=== PATIENT | male | born 1935 | race Caucasian/White ===

== ENCOUNTER 2018-09-10 13:40 | Inpatient (IN) ==
[2018-09-10 14:33] LABS: Bilirubin,Urine Negative (Negative); Blood,Urine Moderate (Negative); Clarity,Urine Clear (Clear); Color,Urine Yellow (Yellow); Glucose,Urine (UA) 100 mg/dL (Normal); Ketones,Urine Negative (Negative); Leukocyte Esterase,Urine Negative (Negative); Nitrite,Urine Negative (Negative); PH,Urine 6.5 pH Units (5.0-8.0); Protein,Urine 100 mg/dL (Neg-Trace); Specific Gravity,Urine 1.011 (1.010-1.025); Urobilinogen,Urine Normal (Normal)
[2018-09-10 14:35] LABS: Bacteria,Urine None Seen per hpf (None-Few); Hyaline Casts,Urine None Seen per lpf (None-Few); Squamous Epithelial Cell,Urine Moderate per lpf (None-Few); WBC,Urine 0-3 per hpf (0-3)
--- NOTE | 2018-09-10 16:48 | Emergency Department Note ---
Disposition Clinical Impression: Atrial fibrillation with RVR, Weakness, Urinary retention, BRIANNA (acute kidney injury) Disposition: Admitted As Inpatient Condition: Fair General Adult HPI - General Chief complaint: ED Urogenital-Male Stated complaint: UTI Time Seen by Provider: 09/10/18 16:35 - History of Present Illness Pain Scale: 0 - Related Data Home Medications Medication Instructions Recorded Confirmed Benazepril HCl [Lotensin] 20 mg PO DAILY 09/10/18 09/10/18 Cholecalciferol (D-3) [Vitamin D] 2,000 unit PO DAILY 09/10/18 09/10/18 Latanoprost [Xalatan] 1 drop BOTH EYES HS 09/10/18 09/10/18 Metformin HCl [Glucophage Xr] 500 mg PO BID 09/10/18 09/10/18 Pravastatin Sodium [Pravachol] 40 mg PO QPM 09/10/18 09/10/18 Tamsulosin HCl [Flomax] 0.4 mg PO QPM 09/10/18 09/10/18 Warfarin Sodium 5 mg PO SUTUTHSA 09/10/18 09/10/18 Warfarin [Coumadin] 6 mg PO MOWEFR 09/10/18 09/10/18 amLODIPine [Norvasc] 5 mg PO DAILY 09/10/18 09/10/18 raNITIdine HCl [Ranitidine HCl] 150 mg PO QPM 09/10/18 09/10/18 Allergies Allergy/AdvReac Type Severity Reaction Status Date / Time No Known Allergies Allergy Verified 09/10/18 13:44 Course Vital Signs Temperature 98.9 F 09/10/18 13:41 Pulse Rate 108 09/10/18 13:41 Respiratory Rate 16 09/10/18 13:41 Blood Pressure 132/84 09/10/18 13:41 O2 Sat by Pulse Oximetry 92 09/10/18 13:41 Temperature 98.9 F 09/10/18 18:29 Pulse Rate 114 09/10/18 18:32 Respiratory Rate 17 09/10/18 18:32 Blood Pressure 102/70 09/10/18 18:32 O2 Sat by Pulse Oximetry 97 09/10/18 18:32 Oxygen Delivery Oxygen Delivery Room Air Medical Decision Making - Lab Data Result diagrams: 09/10/18 16:17 09/10/18 16:17 Lab Results 09/10/18 09/10/1819 Range/Units 14:21 16:17 16:17 WBC 13.6 H (4.3-11.1) K/mcL RBC 4.47 (4.19-5.50) M/mcL Hgb 12.7 L (12.9-16.9) g/dL Hct 40.5 (37.5-50.1) % MCV 90.6 (83.0-100.0) fL MCH 28.4 (28.0-33.3) pg MCHC 31.4 L (31.6-35.5) g/dL RDW 16.7 H (11.5-14.5) % Plt Count 142 (140-400) K/mcL MPV 9.6 (9.4-12.4) fL Immature Gran % 0.8 (0-4) % Seg Neutrophils % 72.9 % Lymphocytes % 17.2 % Monocytes % 8.6 % Eosinophils % 0.1 % Basophils % 0.4 % Neutrophils # 9.9 H (1.6-8.9) K/mcL Lymphocytes # 2.3 (0.6-4.6) K/mcL Monocytes # 1.2 (0.0-1.3) K/mcL Eosinophils # 0.0 (0.0-0.6) K/mcL Basophils # 0.1 (0.0-0.2) K/mcL PT (9.4-12.1) Seconds INR Sodium 137 (136-145) mEq/L Potassium 4.7 (3.5-5.1) mEq/L Chloride 104 (98-107) mEq/L Carbon Dioxide 26 (23-29) mEq/L BUN 29 H (8-23) mg/dL Creatinine 1.97 H (0.70-1.30) mg/dL Est GFR ( Amer) 39 L (> 60) Est GFR (Non-Af Amer) 33 L (> 60) BUN/Creatinine Ratio 15 (6-26) Glucose 117 H (70-105) mg/dL Calculated Osmolality 291 (280-300) Calcium 9.3 (8.6-10.3) mg/dL Phosphorus (2.7-4.5) mg/dL Magnesium (1.6-2.6) mg/dL Total Bilirubin 1.9 H (0.3-1.0) mg/dL Direct Bilirubin 0.4 H (0.0-0.2) mg/dL Indirect Bilirubin 1.5 H (0.0-1.2) mg/dL AST 13 (13-39) Units/L ALT 13 (7-52) Units/L Alkaline Phosphatase 72 (34-104) Units/L Troponin I (< 0.04) ng/mL B-Natriuretic Peptide (Less than 100) pg/mL Serum Total Protein 7.0 (6.4-8.9) g/dL Albumin 3.9 (3.5-5.7) g/dL Globulin 3.1 (2.4-3.5) g/dL Albumin/Globulin Ratio 1.3 (1.1-2.2) Lipase 12 (11-82) Units/L Urine Color Yellow (Yellow) Urine Clarity Clear (Clear) Urine pH 6.5 (5.0-8.0) pH Units Ur Specific [place] 1.011 (1.010-1.025) Urine Protein 100 H (Neg-Trace) mg/dL Urine Glucose (UA) 100 H (Normal) mg/dL Urine Ketones Negative (Negative) mg/dL Urine Blood Moderate H (Negative) Urine Nitrite Negative (Negative) Urine Bilirubin Negative (Negative) Urine Urobilinogen Normal (Normal) mg/dL Ur Leukocyte Esterase Negative (Negative) Urine Microscopic RBC 5-15 H (0-3) per hpf Urine Microscopic WBC 0-3 (0-3) per hpf Ur Squamous Epith Cells Moderate H (None-Few) per lpf Urine Bacteria None Seen (None-Few) per hpf Hyaline Casts None Seen (None-Few) per lpf Ur Culture Indicated? NO (NO) 09/10/18 09/10/18 09/10/18 Range/Units 16:17 17:09 17:09 WBC (4.3-11.1) K/mcL RBC (4.19-5.50) M/mcL Hgb (12.9-16.9) g/dL Hct (37.5-50.1) % MCV (83.0-100.0) fL MCH (28.0-33.3) pg MCHC (31.6-35.5) g/dL RDW (11.5-14.5) % Plt Count (140-400) K/mcL MPV (9.4-12.4) fL Immature Gran % (0-4) % Seg Neutrophils % % Lymphocytes % % Monocytes % % Eosinophils % % Basophils % % Neutrophils # (1.6-8.9) K/mcL Lymphocytes # (0.6-4.6) K/mcL Monocytes # (0.0-1.3) K/mcL Eosinophils # (0.0-0.6) K/mcL Basophils # (0.0-0.2) K/mcL PT 21.5 H (9.4-12.1) Seconds INR 1.9 Sodium (136-145) mEq/L Potassium (3.5-5.1) mEq/L Chloride (98-107) mEq/L Carbon Dioxide (23-29) mEq/L BUN (8-23) mg/dL Creatinine (0.70-1.30) mg/dL Est GFR ( Amer) (> 60) Est GFR (Non-Af Amer) (> 60) BUN/Creatinine Ratio (6-26) Glucose (70-105) mg/dL Calculated Osmolality (280-300) Calcium (8.6-10.3) mg/dL Phosphorus 2.3 L (2.7-4.5) mg/dL Magnesium 1.8 (1.6-2.6) mg/dL Total Bilirubin (0.3-1.0) mg/dL Direct Bilirubin (0.0-0.2) mg/dL Indirect Bilirubin (0.0-1.2) mg/dL AST (13-39) Units/L ALT (7-52) Units/L Alkaline Phosphatase (34-104) Units/L Troponin I 0.07 H* (< 0.04) ng/mL B-Natriuretic Peptide 348 H (Less than 100) pg/mL Serum Total Protein (6.4-8.9) g/dL Albumin (3.5-5.7) g/dL Globulin (2.4-3.5) g/dL Albumin/Globulin Ratio (1.1-2.2) Lipase (11-82) Units/L Urine Color (Yellow) Urine Clarity (Clear) Urine pH (5.0-8.0) pH Units Ur Specific [place] (1.010-1.025) Urine Protein (Neg-Trace) mg/dL Urine Glucose (UA) (Normal) mg/dL Urine Ketones (Negative) mg/dL Urine Blood (Negative) Urine Nitrite (Negative) Urine Bilirubin (Negative) Urine Urobilinogen (Normal) mg/dL Ur Leukocyte Esterase (Negative) Urine Microscopic RBC (0-3) per hpf Urine Microscopic WBC (0-3) per hpf Ur Squamous Epith Cells (None-Few) per lpf Urine Bacteria (None-Few) per hpf Hyaline Casts (None-Few) per lpf Ur Culture Indicated? (NO) Attestation Statement - Attestation Attestation: I reviewed the residents documentation and agree with the residents assessment and plan of care. I have personally had face to face time with the patient. (Brief History, Brief Exam, and MDM) I personally supervised and was present for the loaiza/critical portions of the following procedures completed by the resident: (add procedures performed here). [id number] time provided Patient appears in no acute distress on exam. Triage note and vitals reviewed by me. Case discussed by me with the resident physician.
[2018-09-10 16:52] LABS: Basophils # 0.1 K/mcL (0.0-0.2); Basophils % 0.4 %; Eosinophils % 0.1 %; Hematocrit 40.5 % (37.5-50.1); Hemoglobin 12.7 g/dL (12.9-16.9); Immature Granulocytes % 0.8 % (0-4); Lymphocytes # 2.3 K/mcL (0.6-4.6); Lymphocytes % 17.2 %; Mean Corpuscular HGB Conc 31.4 g/dL (31.6-35.5); Mean Corpuscular Hemoglobin 28.4 pg (28.0-33.3); Mean Corpuscular Volume 90.6 fL (83.0-100.0); Mean Platelet Volume 9.6 fL (9.4-12.4); Monocytes # 1.2 K/mcL (0.0-1.3); Monocytes % 8.6 %; Neutrophils # 9.9 K/mcL (1.6-8.9); Platelet Count 142 K/mcL (140-400); Red Blood Count 4.47 M/mcL (4.19-5.50); Red Cell Distribution Width 16.7 % (11.5-14.5); Segmented Neutrophils % 72.9 %
--- NOTE | 2018-09-10 16:53 | Emergency Department Note ---
Disposition Clinical Impression: Atrial fibrillation with RVR, Weakness, Urinary retention, BRIANNA (acute kidney injury) Disposition: Admitted As Inpatient Condition: Fair Time of Disposition: 17:43 General Adult HPI - General Chief complaint: ED Urogenital-Male Stated complaint: UTI Time Seen by Provider: 09/10/18 16:35 Source: patient Mode of arrival: ambulatory Limitations: no limitations Nursing Notes Reviewed: Yes Vital Signs Reviewed: Yes - History of Present Illness HPI Narrative: 83-year-old male with history of hypertension, diabetes, BPH with recent hospitalization a [place] a couple months ago for Escherichia coli bacteremia, sepsis and C. difficile presents for evaluation of generalized weakness and concerns for UTI. Patient's history provided via some family at bedside. States the patient does live alone at home. States that he has been more generally weak over the past 24 hours. Patient's also complaining of some urinary symptoms such as dribbling. Patient feels that he is not drinking his bladder but is not entirely sure. Patient denies any chest pain or shortness of breath but noted some chills. No diaphoresis. No abdominal pain or nausea vomiting. Patient denies any recent trauma or falls. Patient is on Coumadin for CAD as well as prior history of blood clots. Patient denies any current diarrhea and completed his course of oral vancomycin as well as completed a course of Bactrim for Escherichia coli. Pain Scale: 0 - Related Data Home Medications Medication Instructions Recorded Confirmed Latanoprost [Xalatan] 1 drop BOTH EYES HS 09/10/18 09/10/18 Warfarin Sodium 5 mg PO SUTUTHSA 09/10/18 09/10/18 Warfarin [Coumadin] 6 mg PO MOWEFR 09/10/18 09/10/18 Allergies Allergy/AdvReac Type Severity Reaction Status Date / Time No Known Allergies Allergy Verified 09/10/18 13:44 All systems ED: reviewed and negative except as stated. Constitutional: Reports: chills. Denies: fever Cardiovascular: Denies: chest pain Respiratory: Denies: cough, dyspnea Gastrointestinal: Denies: abdominal pain, nausea, vomiting Past Medical History - Past Medical History Source: patient Physical Exam - General Limitations: no limitations General appearance: alert, in no apparent distress - Head Head exam: atraumatic, normocephalic, normal inspection - Eye Eye exam: Present: normal appearance, PERRL, EOMI - ENT ENT exam: normal exam - Neck Neck exam: Present: normal inspection - Chest Chest inspection: Present: normal inspection - Respiratory Respiratory exam: Present: normal lung sounds bilaterally. Absent: respiratory distress - Cardiovascular Cardiovascular exam: Present: regular rate, normal rhythm. Absent: normal heart sounds - Abdominal Exam Abdominal exam: Present: soft, Non-Tender - Extremities Exam Extremities exam: Present: normal inspection. Absent: pedal edema - Back Exam Back exam: Present: normal inspection - Neurological Exam Neurological exam: Present: alert, oriented X3, CN II-XII intact - Expanded Neurological Exam Patient oriented to: Present: person Cranial nerves: EOM function (II, III, IV, ): Normal, facial sensation (V): Normal, gag reflex (IX): Normal, spinal accessory function (XI): Normal, tongue deviation (XII): Normal Motor strength - LUE: 5/5 Motor strength - RUE: 5/5 Motor strength - LLE: 5/5 Motor strength - RLE: 5/5 - Skin Skin exam: Present: warm, dry, intact, normal color Course Course Narrative: Patient presents for concerns of generalized weakness. Patient will get basic cardiopulmonary screening evaluation including a troponin chest x-ray. Patient also get jackson catheter. Patient's urine obtained from just not show any signs of infection. - Reevaluation(s) Reevaluation #1: Patient seen and examined. Patient's ED course discussed. Concerns of new onset A. fib. Time: 17:36 Vital Signs Temperature 98.9 F 09/10/18 13:41 Pulse Rate 108 09/10/18 13:41 Respiratory Rate 16 09/10/18 13:41 Blood Pressure 132/84 09/10/18 13:41 O2 Sat by Pulse Oximetry 92 09/10/18 13:41 Temperature 98.9 F 09/10/18 18:29 Pulse Rate 114 09/10/18 18:32 Respiratory Rate 17 09/10/18 18:32 Blood Pressure 102/70 09/10/18 18:32 O2 Sat by Pulse Oximetry 97 09/10/18 18:32 Oxygen Delivery Oxygen Delivery Room Air Medical Decision Making - MDM Narrative Medical decision making narrative: Patient presented for concerns of a UTI. Patient however was complaining of generalized weakness. Patient did have recent hospitalization with sepsis bacteremia as well as C. difficile. Patient denies any abdominal pain is not symptomatic with any diarrhea. Patient finished course of vancomycin as well as Septra for his Escherichia coli. During the patient's ED evaluations noted to be in A. fib RVR with no prior history. Patient is on Coumadin concerns for PE. Patient's initial troponin was negative. Patient required rate control medications. Patient chemistries show renal insufficiency without any prior comparisons. Patient did have a Jackson placed with urinary retention noted. AK I possibly related the patient's post obstructive uropathy. Patient's heart rate and vitals improved during the ED course. Patient will be admitted to hospital service for continued evaluation and monitoring. - Lab Data Lab results reviewed: Yes I reviewed the patient's lab results. Result diagrams: 09/10/18 16:17 09/10/18 16:17 Lab Results 09/10/18 09/10/18 09/10/18 Range/Units 14:21 16:17 16:17 WBC 13.6 H (4.3-11.1) K/mcL RBC 4.47 (4.19-5.50) M/mcL Hgb 12.7 L (12.9-16.9) g/dL Hct 40.5 (37.5-50.1) % MCV 90.6 (83.0-100.0) fL MCH 28.4 (28.0-33.3) pg MCHC 31.4 L (31.6-35.5) g/dL RDW 16.7 H (11.5-14.5) % Plt Count 142 (140-400) K/mcL MPV 9.6 (9.4-12.4) fL Immature Gran % 0.8 (0-4) % Seg Neutrophils % 72.9 % Lymphocytes % 17.2 % Monocytes % 8.6 % Eosinophils % 0.1 % Basophils % 0.4 % Neutrophils # 9.9 H (1.6-8.9) K/mcL Lymphocytes # 2.3 (0.6-4.6) K/mcL Monocytes # 1.2 (0.0-1.3) K/mcL Eosinophils # 0.0 (0.0-0.6) K/mcL Basophils # 0.1 (0.0-0.2) K/mcL PT (9.4-12.1) Seconds INR Sodium 137 (136-145) mEq/L Potassium 4.7 (3.5-5.1) mEq/L Chloride 104 (98-107) mEq/L Carbon Dioxide 26 (23-29) mEq/L BUN 29 H (8-23) mg/dL Creatinine 1.97 H (0.70-1.30) mg/dL Est GFR ( Amer) 39 L (> 60) Est GFR (Non-Af Amer) 33 L (> 60) BUN/Creatinine Ratio 15 (6-26) Glucose 117 H (70-105) mg/dL Calculated Osmolality 291 (280-300) Calcium 9.3 (8.6-10.3) mg/dL Phosphorus (2.7-4.5) mg/dL Magnesium (1.6-2.6) mg/dL Total Bilirubin 1.9 H (0.3-1.0) mg/dL Direct Bilirubin 0.4 H (0.0-0.2) mg/dL Indirect Bilirubin 1.5 H (0.0-1.2) mg/dL AST 13 (13-39) Units/L ALT 13 (7-52) Units/L Alkaline Phosphatase 72 (34-104) Units/L Troponin I (< 0.04) ng/mL B-Natriuretic Peptide (Less than 100) pg/mL Serum Total Protein 7.0 (6.4-8.9) g/dL Albumin 3.9 (3.5-5.7) g/dL Globulin 3.1 (2.4-3.5) g/dL Albumin/Globulin Ratio 1.3 (1.1-2.2) Lipase 12 (11-82) Units/L Urine Color Yellow (Yellow) Urine Clarity Clear (Clear) Urine pH 6.5 (5.0-8.0) pH Units Ur Specific [place] 1.011 (1.010-1.025) Urine Protein 100 H (Neg-Trace) mg/dL Urine Glucose (UA) 100 H (Normal) mg/dL Urine Ketones Negative (Negative) mg/dL Urine Blood Moderate H (Negative) Urine Nitrite Negative (Negative) Urine Bilirubin Negative (Negative) Urine Urobilinogen Normal (Normal) mg/dL Ur Leukocyte Esterase Negative (Negative) Urine Microscopic RBC 5-15 H (0-3) per hpf Urine Microscopic WBC 0-3 (0-3) per hpf Ur Squamous Epith Cells Moderate H (None-Few) per lpf Urine Bacteria None Seen (None-Few) per hpf Hyaline Casts None Seen (None-Few) per lpf Ur Culture Indicated? NO (NO) 09/10/18 09/10/18 09/10/18 Range/Units 16:17 17:09 17:09 WBC (4.3-11.1) K/mcL RBC (4.19-5.50) M/mcL Hgb (12.9-16.9) g/dL Hct (37.5-50.1) % MCV (83.0-100.0) fL MCH (28.0-33.3) pg MCHC (31.6-35.5) g/dL RDW (11.5-14.5) % Plt Count (140-400) K/mcL MPV (9.4-12.4) fL Immature Gran % (0-4) % Seg Neutrophils % % Lymphocytes % % Monocytes % % Eosinophils % % Basophils % % Neutrophils # (1.6-8.9) K/mcL Lymphocytes # (0.6-4.6) K/mcL Monocytes # (0.0-1.3) K/mcL Eosinophils # (0.0-0.6) K/mcL Basophils # (0.0-0.2) K/mcL PT 21.5 H (9.4-12.1) Seconds INR 1.9 Sodium (136-145) mEq/L Potassium (3.5-5.1) mEq/L Chloride (98-107) mEq/L Carbon Dioxide (23-29) mEq/L BUN (8-23) mg/dL Creatinine (0.70-1.30) mg/dL Est GFR ( Amer) (> 60) Est GFR (Non-Af Amer) (> 60) BUN/Creatinine Ratio (6-26) Glucose (70-105) mg/dL Calculated Osmolality (280-300) Calcium (8.6-10.3) mg/dL Phosphorus 2.3 L (2.7-4.5) mg/dL Magnesium 1.8 (1.6-2.6) mg/dL Total Bilirubin (0.3-1.0) mg/dL Direct Bilirubin (0.0-0.2) mg/dL Indirect Bilirubin (0.0-1.2) mg/dL AST (13-39) Units/L ALT (7-52) Units/L Alkaline Phosphatase (34-104) Units/L Troponin I 0.07 H* (< 0.04) ng/mL B-Natriuretic Peptide 348 H (Less than 100) pg/mL Serum Total Protein (6.4-8.9) g/dL Albumin (3.5-5.7) g/dL Globulin (2.4-3.5) g/dL Albumin/Globulin Ratio (1.1-2.2) Lipase (11-82) Units/L Urine Color (Yellow) Urine Clarity (Clear) Urine pH (5.0-8.0) pH Units Ur Specific [place] (1.010-1.025) Urine Protein (Neg-Trace) mg/dL Urine Glucose (UA) (Normal) mg/dL Urine Ketones (Negative) mg/dL Urine Blood (Negative) Urine Nitrite (Negative) Urine Bilirubin (Negative) Urine Urobilinogen (Normal) mg/dL Ur Leukocyte Esterase (Negative) Urine Microscopic RBC (0-3) per hpf Urine Microscopic WBC (0-3) per hpf Ur Squamous Epith Cells (None-Few) per lpf Urine Bacteria (None-Few) per hpf Hyaline Casts (None-Few) per lpf Ur Culture Indicated? (NO) - Radiology Data Radiology results reviewed: Yes I reviewed the patient's radiology results. Chest X-Ray 09/10/18 16:48 IMPRESSION: No acute cardiopulmonary disease. Cardiomegaly. D/ / 09/10/2018 17:11:22 Salena Cardenas MD / [facility] Interpreting Provider: Salena Cardenas MD - EKG Data EKG #1 EKG attestation: Yes I reviewed and interpreted this EKG. Rate: tachycardia Rhythm: A.Fib [place]/QRS: left axis deviation, LAHB/LAFB When compared to previous EKG there are: changes noted Interpretation: nonspecific ST-T wave changes S.B.A.R. - S.B.A.R. Situation: Demographics Background: Presenting Complaint Assessment: Vital Signs, Course and respsone to treatment, Patient/Family Expectation Recommendation: Barrier(s) to disposition, Recommendation based on pending studies, treatments, or consults S.B.A.R. Report Given to: Hospitalist S.B.A.R. Repor Time: 17:43
[2018-09-10 17:04] LABS: Albumin 3.9 g/dL (3.5-5.7); Albumin/Globulin Ratio 1.3 (1.1-2.2); Bilirubin,Direct 0.4 mg/dL (0.0-0.2); Bilirubin,Indirect 1.5 mg/dL (0.0-1.2); Bilirubin,Total 1.9 mg/dL (0.3-1.0); Calcium 9.3 mg/dL (8.6-10.3); Globulin 3.1 g/dL (2.4-3.5); Potassium 4.7 mEq/L (3.5-5.1)
[2018-09-10 17:08] LABS: INR 1.9; Prothrombin Time 21.5 Seconds (9.4-12.1)
[2018-09-10] MEDS ORDERED: 0.9 % Sodium Chloride 500 ML IVC ONE (17:42)
[2018-09-10] MEDS ORDERED: Acetaminophen 325 MG TABLET PO PRN (17:51)
[2018-09-10] MEDS ORDERED: Naloxone 0.4 MG/ML INJ IVP PRN (17:51)
[2018-09-10] MEDS ORDERED: Ondansetron 4 MG/2 ML VIAL IVP PRN (17:51)
[2018-09-10] MEDS ORDERED: Mag Hydrox/Al Hydrox/Simeth 30 ML UDC PO PRN (17:51)
[2018-09-10] MEDS ORDERED: MOM Conc 10 ML UD.LIQ PO PRN (17:51)
[2018-09-10] MEDS ORDERED: traMADol 50 MG TABLET PO PRN (17:51)
[2018-09-10] MEDS ORDERED: *HR* Promethazine 25 MG/ML VIAL IVP PRN (17:51)
[2018-09-10] MEDS ORDERED: *HR* Dextrose 50 % in Water (Syg) 50 ML SYRINGE IVP PRN (17:57)
[2018-09-10] MEDS ORDERED: Dextrose Gel 15 GM/37.5 ML TUBE PO PRN ×2 (17:57)
[2018-09-10] MEDS ORDERED: D5% in Water 1,000 ML IVC PRN (17:57)
--- NOTE | 2018-09-10 17:59 | Internal Med History&Physical ---
Date of Encounter: 09/10/18 Time of Encounter: 17:56 Internal Medicine - H&P: HPI Admitted From: Home Plans for Post Hospital Care: Home History of present illness: 83-year-old male with history of hypertension, diabetes, BPH with recent hospitalization a [place] a couple months ago for Escherichia coli bacteremia, sepsis and C. difficile presents for evaluation of generalized weakness and concerns for UTI. Patient's history provided via some family at bedside. States the patient does live alone at home. States that he has been more ge nerally weak over the past 24 hours. Patient's also complaining of some urinary symptoms such as dribbling. Patient feels that he is not drinking his bladder but is not entirely sure. Patient denies any chest pain or shortness of breath but noted some chills. No diaphoresis. No abdominal pain or nausea vomiting. Patient denies any recent trauma or falls. Patient is on Coumadin for CAD as we ll as prior history of blood clots. Patient denies any current diarrhea and completed his course of oral vancomycin as well as completed a course of Bactrim for Escherichia coli. In the ED, pt vitals were notable for tachycardia with HR about 120, tele showed afib. labs showed elevated wbc, Cr, BUN, and bili. UA does not show wbc or pyuria. CXR showed cardiomegaly without edema. He is admitted for further evaluation. Code status discussed with pt and family, they wish to be full code. Internal Medicine - H&P: Meds Allergy/AdvReac Type Severity Reaction Status Date / Time No Known Allergies Allergy Verified 09/10/18 13:44 All Systems PM: A 10-system review of systems was performed and is negative for pertinent f indings except as documented above in the HPI. Review of systems: REVIEW OF SYSTEMS: CONSTITUTIONAL: No weight loss, fever, chills, weakness or fatigue. HEENT: Eyes: No visual loss, blurred vision, double vision or yellow sclerae. Ears, Nose, Throat: No hearing loss, sneezing, congestion, runny nose or sore throat. SKIN: No rash or itching. CARDIOVASCULAR: No chest pain, chest pressure or chest discomfort. No palpitations or edema. RESPIRATORY: No shortness of breath, cough or sputum. GASTROINTESTINAL: No anorexia, nausea, vomiting or diarrhea. No abdominal pain or blood. GENITOURINARY: No dysuria, urgency, or frequency. NEUROLOGICAL: No headache, dizziness, syncope, paralysis, ataxia, numbness or tingling in the extremities. No change in bowel or bladder control. MUSCULOSKELETAL: No muscle, back pain, joint pain or stiffness. HEMATOLOGIC: No anemia, bleeding or bruising. LYMPHATICS: No enlarged nodes. No history of splenectomy. PSYCHIATRIC: No history of depression or anxiety. ENDOCRINOLOGIC: No reports of sweating, cold or heat intolerance. No polyuria or polydipsia. - Constitutional Vitals: Temp Pulse Resp BP Pulse Ox 98.9 F 102 17 130/97 96 09/10/18 13:41 09/10/18 17:43 09/10/18 17:43 09/10/18 17:43 09/10/18 17:43 General appearance: Present: cooperative, A&O X 2 Exam: PHYSICAL EXAMINATION: GENERAL APPEARANCE: The patient is alert, oriented and in no acute distress. HEENT: Head is normocephalic. The sinuses are nontender. Pupils are equal and reactive. The nares are patent. Oropharynx clear without lesions. NECK: Supple without lymphadenopathy. HEART: Regular rate and rhythm. LUNGS: No crackles or wheezes are heard. ABDOMEN: Soft, nontender, nondistended with good bowel sounds heard. Inguinal area is normal. EXTREMITIES: Without cyanosis, clubbing or edema. NEUROLOGICAL: Gross nonfocal. SKIN: Warm and dry without any rash. Internal Med - H&P Results - Labs CBC & Chem 7: 09/10/18 16:17 09/10/18 16:17 Labs: Short CBC 09/10/18 Range/Units 16:17 WBC 13.6 H (4.3-11.1) K/mcL Hgb 12.7 L (12.9-16.9) g/dL Hct 40.5 (37.5-50.1) % Plt Count 142 (140-400) K/mcL Neutrophils # 9.9 H (1.6-8.9) K/mcL BMP 09/10/18 16:17 Sodium 137 Potassium 4.7 Chloride 104 Carbon Dioxide 26 BUN 29 H Creatinine 1.97 H Glucose 117 H Calcium 9.3 Liver Function 09/10/18 Range/Units 16:17 Total Bilirubin 1.9 H (0.3-1.0) mg/dL Direct Bilirubin 0.4 H (0.0-0.2) mg/dL AST 13 (13-39) Units/L ALT 13 (7-52) Units/L Alkaline Phosphatase 72 (34-104) Units/L Albumin 3.9 (3.5-5.7) g/dL Urine 09/10/18 Range/Units 14:21 Urine Color Yellow (Yellow) Urine Clarity Clear (Clear) Urine pH 6.5 (5.0-8.0) pH Units Ur Specific [place] 1.011 (1.010-1.025) Urine Protein 100 H (Neg-Trace) mg/dL Urine Glucose (UA) 100 H (Normal) mg/dL - Impressions ITS Impressions Chest X-Ray 09/10/18 16:48 IMPRESSION: No acute cardiopulmonary disease. Cardiomegaly. D/ / 09/10/2018 17:11:22 Salena Cardenas MD / [email or web address] Interpreting Provider: Salena Cardenas MD - Assessment and Plan (1) Cellulitis of right leg Current Visit: Yes Status: Acute Assessment and plan: recently treated, but relapsed. Started on vanco. Blood cx pending. Pharmacy to dose. (2) Weakness Current Visit: Yes Status: Acute Assessment and plan: Generalized weakness, likely secondary to systemic disease including identified afib with RVR, recent UTI, and BRIANNA. Treat underlying disease. Check TSH, vit b12 and D. Pt/OT. (3) Atrial fibrillation with RVR Current Visit: Yes Status: Acute Assessment and plan: New onset of afib, on cardizem gtt. On coumadin at home due to Hx of DVT, INR 1.9 currently. will continue, Pharmacy to dose. ECHO in am. TSH and free T4 ordered. May consult cardiology if indicated. (4) BRIANNA (acute kidney injury) Current Visit: Yes Status: Acute Assessment and plan: Hx of one kidney, Hx of CKD per family. No baseline to compare, received IVF, will continue IVF. Place a jackson because pt reported urinary retention. May need further workup if renal function does not improve. (5) Diabetes mellitus Current Visit: No Status: Chronic Assessment and plan: Insulin sliding scale. 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 (7) Urinary retention Current Visit: Yes Status: Acute Assessment and plan: jackson, flomax if not ordered. Urology consult if indicated. (8) DVT prophylaxis Current Visit: No Status: Acute Assessment and plan: Coumadin. - Time Spent With Patient Total time spent is greater than 50% in coordination of care (as documented) at patient's floor/unit and/or counseling patient: Greater than 35 minutes
[2018-09-10 18:07] LABS: Magnesium 1.8 mg/dL (1.6-2.6); Phosphorous 2.3 mg/dL (2.7-4.5)
[2018-09-10 18:56] LABS: Troponin I 0.07 ng/mL (< 0.04)
[2018-09-10 20:23] LABS: Thyroid Stimulating Hormone 1.214 mcIU/mL (0.340-5.600)
[2018-09-10] MEDS ORDERED: *HR* Warfarin 5 MG TABLET PO ONE (21:22)
[2018-09-10] MEDS: Insulin LISPRO 300 UNITS/3 ML VIAL SQ SCH (21:38)
[2018-09-10] MEDS: 0.9 % Sodium Chloride 1,000 ML IVC SCH (22:56)
[2018-09-11 06:09] LABS: Basophils % 0.4 %; Eosinophils # 0.1 K/mcL (0.0-0.6); Immature Granulocytes % 0.9 % (0-4); Lymphocytes # 1.9 K/mcL (0.6-4.6); Lymphocytes % 19.3 %; Mean Corpuscular HGB Conc 31.8 g/dL (31.6-35.5); Mean Corpuscular Hemoglobin 28.9 pg (28.0-33.3); Mean Corpuscular Volume 90.9 fL (83.0-100.0); Mean Platelet Volume 10.2 fL (9.4-12.4); Neutrophils # 6.6 K/mcL (1.6-8.9); Platelet Count 121 K/mcL (140-400); Red Blood Count 3.74 M/mcL (4.19-5.50); Red Cell Distribution Width 16.6 % (11.5-14.5); Segmented Neutrophils % 68.4 %
[2018-09-11 06:10] LABS: Hemoglobin 10.8 g/dL (12.9-16.9)
[2018-09-11 06:18] LABS: INR 1.6; Prothrombin Time 17.8 Seconds (9.4-12.1)
[2018-09-11 06:33] LABS: Albumin 3.2 g/dL (3.5-5.7); Albumin/Globulin Ratio 1.5 (1.1-2.2); Bilirubin,Total 1.1 mg/dL (0.3-1.0); Calcium 8.7 mg/dL (8.6-10.3); Globulin 2.2 g/dL (2.4-3.5); Potassium 4.2 mEq/L (3.5-5.1); Total Protein 5.4 g/dL (6.4-8.9)
[2018-09-11] MEDS ORDERED: Ringers Solution, Lactated 1,000 ML IVC SCH (08:00)
[2018-09-11] MEDS: Insulin LISPRO 300 UNITS/3 ML VIAL SQ SCH ×4 (08:27→21:13)
[2018-09-11] MEDS ORDERED: Vancomycin (wt based) 1,000 MG VIAL IVPB SCH (09:00)
[2018-09-11] MEDS ORDERED: 0.9 % Sodium Chloride 1,000 ML IVC SCH (09:30)
--- NOTE | 2018-09-11 09:51 | Cardiology Consult Note ---
Date of Encounter: 09/11/18 Time of Encounter: 09:45 Assessment and Plan (1) Elevated troponin I level Current Visit: Yes Status: Acute Demand ischemia from AF RVR, BRIANNA cystitis. Flat adynamic. TTE shows normal EF. No further purvis necessary, cardiology will sign off. Thanks (2) Atrial fibrillation Current Visit: Yes Status: Acute DC norvasc, change to cardizem 120mg CD. Uptitrate as necessary. Already on coumadin, goal INR 2-3 Qualifiers: Atrial fibrillation type: unspecified Qualified Code(s): I48.91 - Unspecified atrial fibrillation Discussion w patient/family: The assessment and plan as outlined above was discussed with the patient and/or family members who expressed understanding and agreement. All questions were answered. Thank you for involving us in the care of your patient. Please call with any questions. History of Present Illness Consult date: 09/11/18 Consult reason: elevated troponin History of present illness: Mr. Stokes is a 83-year-old male with history of hypertension, diabetes, BPH, AF on coumadin with recent hospitalization a [place] a couple months ago for Escherichia coli bacteremia, sepsis and C. difficile presents for evaluation of generalized weakness and concerns for UTI. Patient's history provided via some family at bedside. States the patient does live alone at home. States that he has been more generally weak over the past 24 hours. Patient's also complaining of some urinary symptoms such as dribbling. Patient denies any chest pain or shortness of breath but noted some chills. No diaphoresis. No abdominal pain or nausea vomiting. Patient denies any recent trauma or falls. Patient is on Coumadin for prior history of blood clots. Patient denies any current diarrhea and completed his course of oral vancomycin as well as completed a course of Bactrim for Escherichia coli. He denies chest/jaw/arm discomfort, dyspnea or nausea. He is normally active without any limitation. 09/10/2018 LVEF 55-60%. Mild left ventricular diastolic dysfunction. Normal right ventricular structure and function. Moderate aortic regurgitation. Mild mitral regurgitation. Mild tricuspid regurgitation. Mild pulmonic regurgitation. Borderline pulmonary hypertension. Past Med Surg Social Fam HX - Past Medical History Medical history: asthma, DVT, diabetes, GERD, hypertension, pulmonary embolus, renal disease Additional medical history: only one kidney, hernia - Social History Smoking Status: Former smoker Alcohol use: none Drug use: none Medications and Allergies Benazepril HCl [Lotensin] 20 mg PO DAILY 09/10/18 [History] Cholecalciferol (D-3) [Vitamin D] 2,000 unit PO DAILY 09/10/18 [History] Latanoprost [Xalatan] 1 drop BOTH EYES HS 09/10/18 [History] Metformin HCl [Glucophage Xr] 500 mg PO BID 09/10/18 [History] Pravastatin Sodium [Pravachol] 40 mg PO QPM 09/10/18 [History] Tamsulosin HCl [Flomax] 0.4 mg PO QPM 09/10/18 [History] Warfarin Sodium 5 mg PO SUTUTHSA 09/10/18 [History] Warfarin [Coumadin] 6 mg PO MOWEFR 09/10/18 [History] amLODIPine [Norvasc] 5 mg PO DAILY 09/10/18 [History] raNITIdine HCl [Ranitidine HCl] 150 mg PO QPM 09/10/18 [History] Allergy/AdvReac Type Severity Reaction Status Date / Time No Known Allergies Allergy Verified 09/10/18 13:44 All Systems Review: The remainder of the systems were reviewed and are negative - Constitutional Constitutional: malaise, no chills, no fatigue - EENT Eyes: no blurred vision, no loss of vision Nose, mouth and throat: no bleeding gums, no epistaxis - Cardiovascular Cardiovascular: no chest pain at rest, no chest pain with exertion - Respiratory Respiratory: no dyspnea, no hemoptysis - Gastrointestinal Gastrointestinal: no hematemesis, no hematochezia - Genitourinary Genitourinary: no hematuria, no nocturia - Musculoskeletal Musculoskeletal: no abnormal gait, no myalgias - Integumentary Integumentary: no erythema, no rash - Neurological Neurological: no loss of vision, no syncope - Psychiatric Psychiatric: no hallucinations, no panic attacks - Hematological/Lymphatic Hematologic/Lymphatic: no easy bleeding, no easy bruising Physical Examination Vital Signs, Last 4 Hours Temp Pulse Resp BP Pulse Ox 09/11/18 06:29 98.9 F 71 18 125/71 96 General: Conversant HEENT: Atraumatic Neck: No JVD Cardiac: Reg Rate and Rhythm Lungs: Other (crackles) Neuro: Alert and responsive, No focal deficits noted Abdomen: Soft, Non-Tender Skin: No rashes noted on visualized skin Musculoskeletal: No Chest Wall Tenderness Extremities: No Clubbing, No Edema Results 09/11/18 05:03 09/11/18 05:03 Lab Results 09/10/18 09/10/18 09/10/18 16:17 16:17 16:17 WBC 13.6 H Hgb 12.7 L Hct 40.5 Plt Count 142 INR 1.9 Sodium 137 Potassium 4.7 Chloride 104 Carbon Dioxide 26 BUN 29 H Creatinine 1.97 H Glucose 117 H Calcium 9.3 Magnesium Total Bilirubin 1.9 H AST 13 ALT 13 Alkaline Phosphatase 72 Troponin I B-Natriuretic Peptide Lipase 12 TSH 09/10/18 09/10/18 09/10/18 17:09 17:09 18:21 WBC Hgb Hct Plt Count INR Sodium Potassium Chloride Carbon Dioxide BUN Creatinine Glucose Calcium Magnesium 1.8 Total Bilirubin AST ALT Alkaline Phosphatase Troponin I 0.07 H* B-Natriuretic Peptide 348 H Lipase TSH 1.214 09/10/18 09/11/18 09/11/18 22:56 05:03 05:03 WBC 9.7 Hgb 10.8 L D Hct 34.0 L Plt Count 121 L INR Sodium Potassium Chloride Carbon Dioxide BUN Creatinine Glucose Calcium Magnesium Total Bilirubin AST ALT Alkaline Phosphatase Troponin I 0.05 H* 0.06 H* B-Natriuretic Peptide Lipase TSH 09/11/18 09/11/18 05:03 05:03 WBC Hgb Hct Plt Count INR 1.6 Sodium 138 Potassium 4.2 Chloride 107 Carbon Dioxide 22 L BUN 31 H Creatinine 1.80 H Glucose 139 H Calcium 8.7 Magnesium Total Bilirubin 1.1 H AST 12 L ALT 12 Alkaline Phosphatase 61 Troponin I B-Natriuretic Peptide Lipase TSH - EKG Interpretation EKG results cardiology: personally reviewed (AF RVR) Consult Discharge Plan - Plan Referrals: Cihdi Regalado MD [Primary Care Provider] -
[2018-09-11] MEDS ORDERED: Diltiazem CD (24hr) 120 MG CAPSULE PO ONE (11:22)
--- NOTE | 2018-09-11 13:04 | Internal Med Progress Note ---
Hospitalist Progress Note - Encounter Date of Encounter: 09/11/18 Time of Encounter: 13:01 - Subjective Interval History: I have seen and evaluated the patient at bedside. patient reports no distress. stated that what brought him to the hospital yesterday was that for a couple of hours he could not urinate. he reports that during a recent hospitalization at [place] he had urinary retention. he denies abdominal pain. denies right leg pain, tenderness or warmth. denies shortness of breath. - Exam Vitals: Temp Pulse Resp BP Pulse Ox 98.3 F 73 18 126/71 96 09/11/18 10:35 09/11/18 10:35 09/11/18 10:35 09/11/18 10:35 09/11/18 10:35 Exam: Vitals: Reviewed General: Alert and oriented x4. In no distress Skin: Normal color, no rash, no lesions. HEENT: EOM, pupils equal, round and reactive. Cardiovascular: Irregularly, irregular, normal S1 & S2, no rubs, murmurs or gallops. Lungs: CTA b/l, no wheezes or crackles. Abdomen: Soft, non-tender, no rigidity. Extremities: mild erythema in the right lower extr, no tenderness or warmth to touch. Neurological: Normal cognition and motor skills. Rest of the physical exam is non contributory - Assessment and Plan (1) Atrial fibrillation with RVR Current Visit: Yes Status: Acute Assessment and Plan: Rate controlled. medications adjusted. stated on cardizem 120mg/PO daily. titrate cardizem drip off as tolerated. on warfarin per pharmacy protocol. cardiology recommendations appreciated. (2) Weakness Current Visit: Yes Status: Chronic Assessment and Plan: PT/OT ordered (3) BRIANNA (acute kidney injury) Current Visit: Yes Status: Acute Assessment and Plan: possible due to urinary retention. 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 will continue gently IV hydration with LR @75 ml/hr x2 bags. will re-assess kidney function tomorrow morning retro peritoneal US ordered. urology consulted (4) Urinary retention Current Visit: Yes Status: Acute Assessment and Plan: plan of care as above. (5) Diabetes mellitus Current Visit: No Status: Chronic Assessment and Plan: Blood sugar is well controlled. Continue insulin low-dose sliding scale. Carb controlled diet. (6) Hx of deep venous thrombosis Current Visit: No Status: Chronic Assessment and Plan: Patient is on warfarin per pharmacy protocol. (7) Cellulitis of right leg Current Visit: No Status: Acute Assessment and Plan: Patient with mild erythema, no tenderness or warmth. Denies fevers or chills. X-ray of the extremity ordered ESR, CRP Discontinue vancomycin We will start patient on cephalexin 500 mg by mouth 4 times a day DVT Prophylaxis: Patient is on warfarin - Summary of Assessment and Plan Summary of Assessment and Plan: Patient to remain in the hospital due to acute kidney injury, possible secondary to obstructive uropathy, on IV hydration. - Time Spent with Patient Total time spent is greater than 50% in coordination of care (as documented) at patient's floor/unit and/or counseling patient: Greater than 35 minutes (40) Plan of Care Discussed with: patient (and the nurse.) Internal Medicine: Result - Labs CBC & Chem 7: 09/11/18 05:03 09/11/18 05:03 Labs: Short CBC 09/10/18 09/11/18 Range/Units 16:17 05:03 WBC 13.6 H 9.7 (4.3-11.1) K/mcL Hgb 12.7 L 10.8 L D (12.9-16.9) g/dL Hct 40.5 34.0 L (37.5-50.1) % Plt Count 142 121 L (140-400) K/mcL Neutrophils # 9.9 H 6.6 (1.6-8.9) K/mcL BMP 09/10/18 09/11/18 16:17 05:03 Sodium 137 138 Potassium 4.7 4.2 Chloride 104 107 Carbon Dioxide 26 22 L BUN 29 H 31 H Creatinine 1.97 H 1.80 H Glucose 117 H 139 H Calcium 9.3 8.7 Cardiac Enzymes 09/10/18 09/10/18 09/11/18 Range/Units 17:09 22:56 05:03 Troponin I 0.07 H* 0.05 H* 0.06 H* (< 0.04) ng/mL Liver Function 09/10/18 09/11/18 Range/Units 16:17 05:03 Total Bilirubin 1.9 H 1.1 H (0.3-1.0) mg/dL Direct Bilirubin 0.4 H (0.0-0.2) mg/dL AST 13 12 L (13-39) Units/L ALT 13 12 (7-52) Units/L Alkaline Phosphatase 72 61 (34-104) Units/L Albumin 3.9 3.2 L (3.5-5.7) g/dL Urine 09/10/18 Range/Units 14:21 Urine Color Yellow (Yellow) Urine Clarity Clear (Clear) Urine pH 6.5 (5.0-8.0) pH Units Ur Specific [place] 1.011 (1.010-1.025) Urine Protein 100 H (Neg-Trace) mg/dL Urine Glucose (UA) 100 H (Normal) mg/dL - ABG Interpretation ABG results: PT/INR, D-dimer PT 17.8 Seconds (9.4-12.1) H 09/11/18 05:03 - Impressions Impressions Chest X-Ray 09/10/18 16:48 IMPRESSION: No acute cardiopulmonary disease. Cardiomegaly. D/ / 09/10/2018 17:11:22 Salena Cardenas MD / [facility] [place] Interpreting Provider: Salena Cardenas MD Echocardiogram 09/10/18 17:54 Impressions: LVEF 55-60%. Mild left ventricular diastolic dysfunction. Normal right ventricular structure and function. Moderate aortic regurgitation. Mild mitral regurgitation. Mild tricuspid regurgitation. Mild pulmonic regurgitation. Borderline pulmonary hypertension. Left Ventricular Wall Motion: Rest Echo Findings All wall segments showed normal motion. Findings: Study Quality * Technically adequate exam. ECG Findings * Normal sinus rhythm. Left Ventricle * LVEF 55-60%. * Mild left ventricular diastolic dysfunction. * Normal LV chamber size, wall thickness and function. Right Ventricle * Normal right ventricular structure and function. Left Atrium * Normal left atrial size. Right Atrium * Normal right atrial size. Aortic Valve * Trileaflet aortic valve. * Mildly thickened aortic valve leaflets. * Moderate aortic regurgitation. * No aortic stenosis. Mitral Valve * No mitral stenosis. * Mildly calcified mitral valve leaflets. * Mild mitral regurgitation. Tricuspid Valve * Tricuspid valve not well visualized. * Mild tricuspid regurgitation. * Estimated RA pressure is 3 mmHg. * Estimated RVSP is 35 mmHg. * Borderline pulmonary hypertension. Pulmonic Valve * Pulmonic valve is not well visualized. * No pulmonic stenosis. * Mild pulmonic regurgitation. Pulmonary Artery * Pulmonary artery not well visualized. Aorta * Normally sized aortic root. Pericardium * There is no pericardial effusion present. Interatrial Septum * No evidence of PFO by color Doppler. IVC * Normal IVC dimensions and inspiratory collapse. Consult Discharge Plan - Plan Referrals: Chidi Regalado MD [Primary Care Provider] - (5) Diabetes mellitus Qualifiers: Diabetes mellitus type: type 2 Diabetes mellitus care home insulin use: unspecified manager intermediate insulin use status Diabetes mellitus complication status: with unspecified complications Qualified Code(s): E11.8 - Type 2 diabetes mellitus with unspecified complications
[2018-09-11] MEDS: 0.9 % Sodium Chloride 1,000 ML IVC SCH (13:59)
[2018-09-11] MEDS: cephALEXin 500 MG CAPSULE PO SCH ×3 (14:38→23:11)
[2018-09-11] MEDS: Ringers Solution, Lactated 1,000 ML IVC SCH (14:40)
[2018-09-11] MEDS ORDERED: *HR* Warfarin 3 MG TABLET PO ONE (18:00)
[2018-09-11] MEDS ORDERED: Warfarin perPT PO PRN (18:00)
[2018-09-11] MEDS: Famotidine 20 MG TABLET PO SCH (23:11)
[2018-09-12] MEDS: Ringers Solution, Lactated 1,000 ML IVC SCH (05:28)
[2018-09-12 07:25] LABS: Basophils % 0.4 %; Eosinophils # 0.2 K/mcL (0.0-0.6); Eosinophils % 2.2 %; Hematocrit 35.7 % (37.5-50.1); Hemoglobin 11.4 g/dL (12.9-16.9); Immature Granulocytes % 1.1 % (0-4); Lymphocytes # 1.6 K/mcL (0.6-4.6); Mean Corpuscular HGB Conc 31.9 g/dL (31.6-35.5); Mean Corpuscular Hemoglobin 28.8 pg (28.0-33.3); Mean Corpuscular Volume 90.2 fL (83.0-100.0); Mean Platelet Volume 10.1 fL (9.4-12.4); Monocytes # 0.8 K/mcL (0.0-1.3); Platelet Count 125 K/mcL (140-400); Red Blood Count 3.96 M/mcL (4.19-5.50); Red Cell Distribution Width 15.9 % (11.5-14.5); Segmented Neutrophils % 65.3 %
[2018-09-12 07:32] LABS: INR 1.7; Prothrombin Time 18.9 Seconds (9.4-12.1)
[2018-09-12 07:38] LABS: Calcium 8.7 mg/dL (8.6-10.3); Magnesium 1.9 mg/dL (1.6-2.6); Phosphorous 2.3 mg/dL (2.7-4.5); Potassium 4.1 mEq/L (3.5-5.1)
[2018-09-12] MEDS: Diltiazem CD (24hr) 120 MG CAPSULE PO SCH (07:44)
[2018-09-12] MEDS: cephALEXin 500 MG CAPSULE PO SCH ×4 (07:44→21:18)
[2018-09-12] MEDS: Insulin LISPRO 300 UNITS/3 ML VIAL SQ SCH ×4 (07:45→21:18)
--- NOTE | 2018-09-12 10:32 | Urology - Consult Note ---
Date of Encounter: 09/12/18 Time of Encounter: 10:29 - Assessment and Plan (1) Urinary retention Current Visit: Yes Status: Acute Assessment and plan: 83-year-old man with a history of urinary retention. He has an indwelling cat heter with clear urine. Please continue So catheter for now. I will increase his tamsulosin to 0.8 mg daily. I will also add on finasteride. He has a history of blood clots. Okay to continue anticoagulation for now. We discussed procedures in case he is not able to void in the future. We r eviewed intermittent catheterization, Rezum, and Greenlight PVP. I will have him return to the office in one week for a voiding trial upon discharge. Urology CN:RE Consult date: 09/12/18 Reason for consult Urology: Other (Urinary retention) History of present illness: 83-year-old gentleman presents with concern for urinary retention. He was recently hospitalized at an outside hospital. During that hospital stay he had a catheter placed. He eventually had it removed. He was able to urinate well but his urine stream became slower. Over time it got worse. He felt that his stream was quite weak. He spoke with his primary care doctor who advised him to come to [place]. A So catheter has been placed. His urine has been clear. He does take tamsulosin. He denies any family history of prostate cancer. 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 - Family History Father Hx Family Genitourinary Disorders: No (No prostate cancer.) Medications and Allergies Benazepril HCl [Lotensin] 20 mg PO DAILY 09/10/18 [History] Cholecalciferol (D-3) [Vitamin D] 2,000 unit PO DAILY 09/10/18 [History] Latanoprost [Xalatan] 1 drop BOTH EYES HS 09/10/18 [History] Metformin HCl [Glucophage Xr] 500 mg PO BID 09/10/18 [History] Pravastatin Sodium [Pravachol] 40 mg PO QPM 09/10/18 [History] Tamsulosin HCl [Flomax] 0.4 mg PO QPM 09/10/18 [History] Warfarin Sodium 5 mg PO SUTUTHSA 09/10/18 [History] Warfarin [Coumadin] 6 mg PO MOWEFR 09/10/18 [History] amLODIPine [Norvasc] 5 mg PO DAILY 09/10/18 [History] raNITIdine HCl [Ranitidine HCl] 150 mg PO QPM 09/10/18 [History] Allergy/AdvReac Type Severity Reaction Status Date / Time No Known Allergies Allergy Verified 09/10/18 13:44 Review of Systems - Constitutional no chills, no fever(s) - EENT Nose, mouth and throat: no dizziness - Cardiovascular no chest pain - Respiratory no dyspnea - Gastrointestinal no nausea, no vomiting - Genitourinary difficulty urinating, no flank pain, no hematuria - Musculoskeletal no back pain - Integumentary no erythema, no rash - Neurological no weakness - Psychiatric no suicidal ideation - Hematologic/Lymphatic no easy bleeding - Allergic/Immunologic no wheezing Exam Initial Vital Signs Temp Pulse Resp BP Pulse Ox 98.9 F 108 16 132/84 92 09/10/18 13:41 09/10/18 13:41 09/10/18 13:41 09/10/18 13:41 09/10/18 13:41 - General physical appearance Present: well developed, well nourished, no distress - Eyes Absent: icteric - ENT Present: normal nares - Neck Present: trachea midline - Respiratory Present: normal respiratory effort - Cardiovascular Cardiovascular exam IM: RRR - Abdomen Abdomen: Present: soft - Genitourinary normal penis with no external lesions, other (So catheter in place) - Integumentary Present: no rash - Neurologic Present: normal coordination - Musculoskeletal Present: other (grossly normal.) Urology Results - Labs 09/12/18 06:30 09/12/18 06:30 Abnormal lab results WBC 13.6 K/mcL (4.3-11.1) H 09/10/18 16:17 RBC 3.96 M/mcL (4.19-5.50) L 09/12/18 06:30 Hgb 11.4 g/dL (12.9-16.9) L 09/12/18 06:30 Hct 35.7 % (37.5-50.1) L 09/12/18 06:30 MCHC 31.4 g/dL (31.6-35.5) L 09/10/18 16:17 RDW 15.9 % (11.5-14.5) H 09/12/18 06:30 Plt Count 125 K/mcL (140-400) L 09/12/18 06:30 9.9 K/mcL (1.6-8.9) H 09/10/18 16:17 ESR 41 mm/hr (0-10) H 09/11/18 05:03 PT 18.9 Seconds (9.4-12.1) H 09/12/18 06:30 Carbon Dioxide 22 mEq/L (23-29) L 09/11/18 05:03 BUN 27 mg/dL (8-23) H 09/12/18 06:30 1.70 mg/dL (0.70-1.30) H 09/12/18 06:30 Est GFR ( Amer) 47 (> 60) L 09/12/18 06:30 Est GFR (Non-Af Amer) 39 (> 60) L 09/12/18 06:30 Glucose 174 mg/dL (70-105) H 09/12/18 06:30 POC Glucose 185 mg/dL (70-99) H 09/11/18 20:38 Phosphorus 2.3 mg/dL (2.7-4.5) L 09/12/18 06:30 1.1 mg/dL (0.3-1.0) H 09/11/18 05:03 0.4 mg/dL (0.0-0.2) H 09/10/18 16:17 1.5 mg/dL (0.0-1.2) H 09/10/18 16:17 AST 12 Units/L (13-39) L 09/11/18 05:03 0.06 ng/mL (< 0.04) H* 09/11/18 05:03 129 mg/L (Less than 10) H 09/11/18 05:03 B-Natriuretic Peptide 348 pg/mL (Less than 100) H 09/10/18 17:09 5.4 g/dL (6.4-8.9) L 09/11/18 05:03 3.2 g/dL (3.5-5.7) L 09/11/18 05:03 2.2 g/dL (2.4-3.5) L 09/11/18 05:03 Vitamin B12 104 pg/mL (250-1100) L 09/10/18 18:21 100 mg/dL (Neg-Trace) H 09/10/18 14:21 100 mg/dL (Normal) H 09/10/18 14:21 Moderate (Negative) H 09/10/18 14:21 5-15 per hpf (0-3) H 09/10/18 14:21 Ur Squamous Epith Cells Moderate per lpf (None-Few) H 09/10/18 14:21 Diabetes panel 09/12/18 Range/Units 06:30 Sodium 136 (136-145) mEq/L Potassium 4.1 (3.5-5.1) mEq/L Chloride 105 (98-107) mEq/L Carbon Dioxide 24 (23-29) mEq/L BUN 27 H (8-23) mg/dL Creatinine 1.70 H (0.70-1.30) mg/dL Glucose 174 H (70-105) mg/dL Calcium 8.7 (8.6-10.3) mg/dL Calcium panel 09/12/18 Range/Units 06:30 Calcium 8.7 (8.6-10.3) mg/dL Phosphorus 2.3 L (2.7-4.5) mg/dL Pituitary panel 09/12/18 Range/Units 06:30 Sodium 136 (136-145) mEq/L Potassium 4.1 (3.5-5.1) mEq/L Chloride 105 (98-107) mEq/L Carbon Dioxide 24 (23-29) mEq/L BUN 27 H (8-23) mg/dL Creatinine 1.70 H (0.70-1.30) mg/dL Glucose 174 H (70-105) mg/dL Calcium 8.7 (8.6-10.3) mg/dL Adrenal panel 09/12/18 Range/Units 06:30 Sodium 136 (136-145) mEq/L Potassium 4.1 (3.5-5.1) mEq/L Chloride 105 (98-107) mEq/L Carbon Dioxide 24 (23-29) mEq/L BUN 27 H (8-23) mg/dL Creatinine 1.70 H (0.70-1.30) mg/dL Glucose 174 H (70-105) mg/dL Calcium 8.7 (8.6-10.3) mg/dL All other labs normal. Consult Discharge Plan - Plan Referrals: Chidi Regalado MD [Primary Care Provider] -
--- NOTE | 2018-09-12 14:31 | Internal Med Progress Note ---
Hospitalist Progress Note - Encounter Date of Encounter: 09/12/18 Time of Encounter: 14:28 - Subjective Interval History: I have seen and evaluated the patient at bedside. patient reports feeling well. denies chest pain, shortness of breath, nausea or vomiting. - Exam Vitals: Temp Pulse Resp BP Pulse Ox 98.7 F 69 20 150/82 96 09/12/18 11:41 09/12/18 11:41 09/12/18 11:41 09/12/18 11:41 09/12/18 11:41 Exam: Vitals: Reviewed General: Alert and oriented x4. In no distress Cardiovascular: Irregularly, irregular, normal S1 & S2, no rubs, murmurs or gallops. Lungs: CTA b/l, no wheezes or crackles. Abdomen: Soft, non-tender, no rigidity. NABS in all 4 quadrants. Extremities: mild erythema in the right lower extr, no tenderness or warmth to touch. Neurological: No focal neurological abnormalities Rest of the physical exam is non contributory - Assessment and Plan (1) Atrial fibrillation with RVR Current Visit: Yes Status: Resolved Assessment and Plan: Rate controlled on diltiazem 120 mg by mouth. Continue warfarin per pharmacy protocol. (2) Weakness Current Visit: Yes Status: Chronic Assessment and Plan: Daily PT/OT. (3) BRIANNA (acute kidney injury) Current Visit: Yes Status: Acute Assessment and Plan: Possible secondary to obstructive uropathy. Continue LR@75 ML/HR. will re- assess kidney function in the morning. (4) Urinary retention Current Visit: Yes Status: Acute Assessment and Plan: US/US retroperitoneal comp IMPRESSION: 1. Morphologically normal right kidney with no hydronephrosis 2. Chronic atrophic left kidney 3. Unremarkable urinary bladder Urology consulted. Recommended to increase tamsulosin to 0.8 mg by mouth daily. finasteride 5 mg by mouth daily added. Continue So catheter. (5) Diabetes mellitus Current Visit: No Status: Chronic Assessment and Plan: Blood sugar is well controlled. Patient is on lispro low-dose sliding scale before meals. Carb controlled diet. (6) Hx of deep venous thrombosis Current Visit: No Status: Chronic Assessment and Plan: On warfarin. (7) Cellulitis of right leg Current Visit: No Status: Acute Assessment and Plan: Continue cephalexin 500 mg by mouth 4 times a day. DVT Prophylaxis: Patient warfarin per pharmacy protocol. - Summary of Assessment and Plan Summary of Assessment and Plan: Patient to remain in the hospital due to acute kidney injury on IV hydration. - Time Spent with Patient Total time spent is greater than 50% in coordination of care (as documented) at patient's floor/unit and/or counseling patient: Greater than 35 minutes (40) Plan of Care Discussed with: patient (and the nurse.) Internal Medicine: Result - Labs CBC & Chem 7: 09/12/18 06:30 09/12/18 06:30 Labs: Short CBC 09/12/18 Range/Units 06:30 WBC 7.6 (4.3-11.1) K/mcL Hgb 11.4 L (12.9-16.9) g/dL Hct 35.7 L (37.5-50.1) % Plt Count 125 L (140-400) K/mcL Neutrophils # 5.0 (1.6-8.9) K/mcL BMP 09/12/18 06:30 Sodium 136 Potassium 4.1 Chloride 105 Carbon Dioxide 24 BUN 27 H Creatinine 1.70 H Glucose 174 H Calcium 8.7 - ABG Interpretation ABG results: PT/INR, D-dimer PT 18.9 Seconds (9.4-12.1) H 09/12/18 06:30 - Impressions Impressions Tibia/Fibula X-Ray 09/11/18 12:48 IMPRESSION: Diffuse soft tissue swelling. D/ / 09/11/2018 17:53:06 John Blackwood MD / [facility] Interpreting Provider: John Blackwood MD Retroperitoneum Ultrasound 09/11/18 15:30 IMPRESSION: 1. Morphologically normal right kidney with no hydronephrosis 2. Chronic atrophic left kidney 3. Unremarkable urinary bladder D/ / Avery Le MD / Avery Le MD Interpreting Provider: Avery Le MD Consult Discharge Plan - Plan Referrals: Chidi Regalado MD [Primary Care Provider] - (5) Diabetes mellitus Qualifiers: Diabetes mellitus type: type 2 Diabetes mellitus lobsterman insulin use: unspecified retirement insulin use status Diabetes mellitus complication status: with unspecified complications Qualified Code(s): E11.8 - Type 2 diabetes mellitus with unspecified complications
[2018-09-12] MEDS: Famotidine 20 MG TABLET PO SCH (17:30)
[2018-09-12] MEDS ORDERED: *HR* Warfarin 3 MG TABLET PO ONE (18:00)
[2018-09-13 04:50] LABS: Basophils # 0.1 K/mcL (0.0-0.2); Basophils % 0.6 %; Eosinophils # 0.2 K/mcL (0.0-0.6); Eosinophils % 2.3 %; Hematocrit 35.3 % (37.5-50.1); Hemoglobin 11.3 g/dL (12.9-16.9); Immature Granulocytes % 1.2 % (0-4); Lymphocytes % 25.1 %; Mean Corpuscular Hemoglobin 28.8 pg (28.0-33.3); Mean Corpuscular Volume 89.8 fL (83.0-100.0); Mean Platelet Volume 10.2 fL (9.4-12.4); Monocytes # 0.8 K/mcL (0.0-1.3); Monocytes % 9.9 %; Neutrophils # 4.7 K/mcL (1.6-8.9); Platelet Count 136 K/mcL (140-400); Red Blood Count 3.93 M/mcL (4.19-5.50); Red Cell Distribution Width 15.9 % (11.5-14.5); Segmented Neutrophils % 60.9 %
[2018-09-13 05:00] LABS: INR 1.9; Prothrombin Time 21.2 Seconds (9.4-12.1)
[2018-09-13 05:09] LABS: Calcium 8.4 mg/dL (8.6-10.3); Magnesium 1.8 mg/dL (1.6-2.6); Phosphorous 2.8 mg/dL (2.7-4.5); Potassium 4.5 mEq/L (3.5-5.1)
[2018-09-13] MEDS: Insulin LISPRO 300 UNITS/3 ML VIAL SQ SCH ×2 (07:13→12:01)
[2018-09-13] MEDS: cephALEXin 500 MG CAPSULE PO SCH (07:27)
[2018-09-13] MEDS: Diltiazem CD (24hr) 120 MG CAPSULE PO SCH (07:27)
[2018-09-13] MEDS ORDERED: Ringers Solution, Lactated 1,000 ML IVC SCH (08:00)
--- NOTE | 2018-09-13 08:46 | Urology Progress Note ---
Date of Encounter: 09/13/18 Time of Encounter: 08:00 - Assessment and Plan (1) Urinary retention Current Visit: Yes Status: Acute Assessment and plan: Patient is an 83-year-old male who presents with history of urinary retention. Patient is aware he will require indwelling catheter for at least 1 more week. Nursing staff to please provide catheter care instructions as well as leg bag with straps. Patient agrees to follow-up with Dr. Fall within 1 week for a voiding trial. Patient may continue tamsulosin 0.4 mg twice daily as well as finasteride daily. Progress Note Subjective: no new complaints, feels better Narrative: Patient seen and examined sitting upright in chair eating breakfast in no apparent distress. So catheter is indwelling and draining transparent, clear yellow urine into bedside bag. Patient denies any fever, chills or flank pain. Objective Initial Vital Signs Temp Pulse Resp BP Pulse Ox 98.9 F 108 16 132/84 92 09/10/18 13:41 09/10/18 13:41 09/10/18 13:41 09/10/18 13:41 09/10/18 13:41 - General physical appearance Present: well developed, no distress, no pain - Respiratory Present: normal expansion, normal respiratory effort - Abdomen Present: soft, non tender - Genitourinary Urine Appearance: Present: Clear - Integumentary Present: no rash, no abnormal pigmentation - Musculoskeletal Present: normal posture - Psychiatric Present: oriented to time, oriented to person, oriented to place, speech is normal, memory intact - Labs 09/13/18 04:10 09/13/18 04:10 Diabetes panel 09/13/18 Range/Units 04:10 Sodium 138 (136-145) mEq/L Potassium 4.5 (3.5-5.1) mEq/L Chloride 107 (98-107) mEq/L Carbon Dioxide 24 (23-29) mEq/L BUN 26 H (8-23) mg/dL Creatinine 1.58 H (0.70-1.30) mg/dL Glucose 153 H (70-105) mg/dL Calcium 8.4 L (8.6-10.3) mg/dL Calcium panel 09/13/18 Range/Units 04:10 Calcium 8.4 L (8.6-10.3) mg/dL Phosphorus 2.8 (2.7-4.5) mg/dL Pituitary panel 09/13/18 Range/Units 04:10 Sodium 138 (136-145) mEq/L Potassium 4.5 (3.5-5.1) mEq/L Chloride 107 (98-107) mEq/L Carbon Dioxide 24 (23-29) mEq/L BUN 26 H (8-23) mg/dL Creatinine 1.58 H (0.70-1.30) mg/dL Glucose 153 H (70-105) mg/dL Calcium 8.4 L (8.6-10.3) mg/dL Adrenal panel 09/13/18 Range/Units 04:10 Sodium 138 (136-145) mEq/L Potassium 4.5 (3.5-5.1) mEq/L Chloride 107 (98-107) mEq/L Carbon Dioxide 24 (23-29) mEq/L BUN 26 H (8-23) mg/dL Creatinine 1.58 H (0.70-1.30) mg/dL Glucose 153 H (70-105) mg/dL Calcium 8.4 L (8.6-10.3) mg/dL Consult Discharge Plan - Plan Referrals: Chidi Regalado MD [Primary Care Provider] -
[2018-09-13] MEDS ORDERED: Finasteride 5 MG TABLET PO SCH (09:00)
--- NOTE | 2018-09-13 09:51 | Electrocardiograph Report ---
[address] [address] Test Date: 2018-09-10 Pat Name: Americo Stokes Department: [id number] Room: 2A31 Gender: M Diabetes Education Coordinator: : 1935 Requested By: John Iqbal Order Number: [id number] Reading MD: Cruz Collins Measurements Intervals [place] Rate: 139 P: 122 NV: 112 QRS: -49 QRSD: 98 T: 78 QT: 310 QTc: 472 Interpretive Statements Probable atrial fibrillation with RVR Left anterior fascicular block Left ventricular hypertrophy Electronically Signed On 09-13-2018 9:50:08 EDT by Cruz Collins
[2018-09-13 11:55] VITALS: BP 163/87
--- NOTE | 2018-09-13 12:53 | Discharge Summary ---
- NOTES TO OUTPATIENT PROVIDER Notes to Outpatient Provider: Have a repeat BMP within a week of hospital discharge. creat at discharge 1.58 Orders not resulted at time of discharge: Pending orders 09/10/18 17:09 Culture,Blood [BC] Stat 09/14/18 04:00 PT/INR [Prothrombin Time INR] [COAG] AM 0400 09/15/18 04:00 PT/INR [Prothrombin Time INR] [COAG] AM 0400 09/16/18 04:00 PT/INR [Prothrombin Time INR] [COAG] AM 0400 09/17/18 04:00 PT/INR [Prothrombin Time INR] [COAG] AM 0400 09/18/18 04:00 PT/INR [Prothrombin Time INR] [COAG] AM 0400 Date of Encounter: 09/13/18 Time of Encounter: 12:49 - Discharge Diagnosis (1) Atrial fibrillation with RVR Priority: Primary Status: Resolved (2) Weakness Priority: Secondary Status: Chronic (3) BRIANNA (acute kidney injury) Priority: Primary Status: Acute (4) Urinary retention Priority: Primary Status: Acute (5) Diabetes mellitus Priority: Secondary Status: Chronic Qualifiers: Diabetes mellitus type: type 2 Diabetes mellitus watermaster insulin use: unspecified correction insulin use status Diabetes mellitus complication status: with unspecified complications Qualified Code(s): E11.8 - Type 2 diabetes mellitus with unspecified complications (6) Hx of deep venous thrombosis Priority: Secondary Status: Chronic (7) Cellulitis of right leg Priority: Primary Status: Acute Hospital course: Mr. Stokes is a 83 year old male history of hypertension, diabetes, BPH with recent hospitalization a [place] a couple months ago for Escherichia coli bacteremia, sepsis and C. difficile presents for evaluation of generalized weakness and concerns for UTI. Patient's complained of some urinary symptoms such as dribbling. Patient feels that he is not drinking his bladder but is not entirely sure. n the ED, pt vitals were notable for tachycardia with HR about 120, tele showed afib. Patient was admitted to the hospital due to A.fib with RvR, BRIANNA on CKD, urinary retention and cellulitis of the right lower extr. Patient was managed with cardizem drip, cardiology consulted and started the patient on diltiazem. Urology consulted and patient had a So catheter inserted, urology also recommended to increase his dose of tamsolusin and added finasteride. Patient also recommended to follow up with urology within a week. Patient kidney function improved with IV hydration and creat at dc 1.58 from 1.80 on admission. patient was recommended to have a BMP within a week of hospital discharge. Patient is hemodynamically stable to be discharged. - Time Spent with Patient Total time spent providing and/or coordinating discharge services: Time spent: Greater than 30 minutes (35) - Discharge Medications Prescriptions: New Diltiazem CD (24hr) [Cardizem CD] 120 mg PO DAILY 30 Days #30 cap.er.24h Tamsulosin [Flomax] 0.8 mg PO DAILY 30 Days #30 capsule cephALEXin [Keflex] 250 mg PO QID 5 Days #10 capsule Finasteride [Proscar] 5 mg PO DAILY 30 Days #30 tablet Continued Warfarin Sodium 5 mg PO SUTUTHSA Warfarin [Coumadin] 6 mg PO MOWEFR Latanoprost [Xalatan] 1 drop BOTH EYES HS Cholecalciferol (D-3) [Vitamin D] 2,000 unit PO DAILY raNITIdine HCl [Ranitidine HCl] 150 mg PO QPM Pravastatin Sodium [Pravachol] 40 mg PO QPM Metformin HCl [Glucophage Xr] 500 mg PO BID Benazepril HCl [Lotensin] 20 mg PO DAILY Discontinued Tamsulosin HCl [Flomax] 0.4 mg PO QPM amLODIPine [Norvasc] 5 mg PO DAILY Home Medications: Benazepril HCl [Lotensin] 20 mg PO DAILY 09/10/18 [History] Cholecalciferol (D-3) [Vitamin D] 2,000 unit PO DAILY 09/10/18 [History] Latanoprost [Xalatan] 1 drop BOTH EYES HS 09/10/18 [History] Metformin HCl [Glucophage Xr] 500 mg PO BID 09/10/18 [History] Pravastatin Sodium [Pravachol] 40 mg PO QPM 09/10/18 [History] Warfarin Sodium 5 mg PO SUTUTHSA 09/10/18 [History] Warfarin [Coumadin] 6 mg PO MOWEFR 09/10/18 [History] raNITIdine HCl [Ranitidine HCl] 150 mg PO QPM 09/10/18 [History] Diltiazem CD (24hr) [Cardizem CD] 120 mg PO DAILY 30 Days #30 cap.er.24h 09/13/18 [Rx] Finasteride [Proscar] 5 mg PO DAILY 30 Days #30 tablet 09/13/18 [Rx] Tamsulosin [Flomax] 0.8 mg PO DAILY 30 Days #30 capsule 09/13/18 [Rx] cephALEXin [Keflex] 250 mg PO QID 5 Days #10 capsule 09/13/18 [Rx] Allergies/Adverse Reactions: Allergy/AdvReac Type Severity Reaction Status Date / Time No Known Allergies Allergy Verified 09/10/18 13:44 Date of admission: 09/10/18 18:17 Primary care physician: Chidi Regalado MD Consults: 09/10/18 18:04 Consult to Physical Therapy [CONS] Stat Comment: Evaluate, develop and implement POC Reason for Consult: dc plan Does patient have active BEDREST order?: No Is patient medically & hemodynamically stable?: Yes Patient assessed for mobility or mobilized this visit?: Yes OT [Consult to Occupational Therapy] [CONS] Stat Comment: Evaluate, develop and implement POC Reason for Consult: dc plan Does patient have active BEDREST order?: No Is patient medically & hemodynamically stable?: Yes Patient assessed for mobility or mobilized this visit?: Yes 09/11/18 13:10 Consult to Urology [CONS] Routine Consulting Provider: U[facility] Reason for Consult: urinary retention Call Completed: No - Constitutional Vitals: Temp Pulse Resp BP Pulse Ox 98.0 F 86 18 163/87 99 09/13/18 11:50 09/13/18 11:50 09/13/18 11:50 09/13/18 11:50 09/13/18 11:50 General appearance: Present: cooperative, A&O X 2 Exam: Vitals: Reviewed General: Alert and oriented x4. In no distress Cardiovascular: Irregularly, irregular, normal S1 & S2, no rubs, murmurs or gallops. Lungs: CTA b/l, no wheezes or crackles. Abdomen: Soft, non-tender, no rigidity. NABS in all 4 quadrants. Extremities: mild erythema in the right lower extr, no tenderness or warmth to touch. Neurological: No focal neurological abnormalities Rest of the physical exam is non contributory - Patient Status Disposition: Home, Self-Care Condition: Fair Functional capacity at discharge: independent ambulation Overall status at discharge: patient is back to baseline - Discharge Instructions Follow Up With: Chidi Regalado MD [Primary Care Provider] - - Diet and Activity Activity: resume usual activities as tolerated Diet: diabetic diet, low salt diet
[2018-09-13] MEDS ORDERED: cephALEXin 250 MG CAPSULE PO SCH (13:00)
[2018-09-13] MEDS ORDERED: *HR* Warfarin 3 MG TABLET PO ONE (18:00)
== END 2018-09-13 14:33 | disposition home or self-care (01) | DRG 683 ==
LOC: 2ANU 13:40 → EMEROOARM 13:40 → SUATTDRO 18:17 → OBSVTOIN 18:17 → 2ANU 20:06
PROVIDERS: ADMIT Internal Medicine Nephrology; ATTEND Internal Medicine

== ENCOUNTER 2020-03-31 20:36 | Inpatient (IN) ==
[2020-04-01] MEDS ORDERED: Acetaminophen 325 MG TABLET PO PRN (01:15)
[2020-04-01] MEDS ORDERED: Naloxone 0.4 MG/ML INJ IVP PRN (01:15)
[2020-04-01] MEDS ORDERED: Ondansetron 4 MG/2 ML VIAL IVP PRN (01:15)
[2020-04-01] MEDS ORDERED: *HR* Dextrose 50 % in Water (Vial) 50 ML VIAL IVP PRN (02:24)
[2020-04-01] MEDS ORDERED: Dextrose Gel 15 GM/37.5 ML TUBE PO PRN ×2 (02:24)
[2020-04-01] MEDS ORDERED: D5% in Water 1,000 ML IVC PRN (02:24)
[2020-04-01] MEDS: Dexamethasone 4 MG/ML VIAL IVP SCH ×2 (02:31→08:30)
[2020-04-01] MEDS ORDERED: 0.9 % Sodium Chloride 1,000 ML IVC SCH (02:45)
[2020-04-01] MEDS: *HR* Metoprolol 5 MG/5 ML VIAL IVP PRN ×3 (05:22→21:37)
[2020-04-01] MEDS: Insulin LISPRO 300 UNITS/3 ML VIAL SQ SCH ×4 (05:24→20:49)
[2020-04-01 05:36] LABS: Basophils # 0.1 K/mcL (0.0-0.2); Basophils % 0.6 %; Eosinophils % 0.1 %; Hematocrit 37.6 % (37.5-50.1); Hemoglobin 11.5 g/dL (12.9-16.9); Immature Granulocytes % 2.2 % (0-4); Lymphocytes # 0.9 K/mcL (0.6-4.6); Lymphocytes % 11.3 %; Mean Corpuscular HGB Conc 30.6 g/dL (31.6-35.5); Mean Corpuscular Hemoglobin 26.9 pg (28.0-33.3); Mean Corpuscular Volume 87.9 fL (83.0-100.0); Mean Platelet Volume 10.5 fL (9.4-12.4); Monocytes # 0.3 K/mcL (0.0-1.3); Monocytes % 3.1 %; Neutrophils # 6.7 K/mcL (1.6-8.9); Platelet Count 132 K/mcL (140-400); Red Blood Count 4.28 M/mcL (4.19-5.50); Red Cell Distribution Width 15.8 % (11.5-14.5); Segmented Neutrophils % 82.7 %; White Blood Count 8.1 K/mcL (4.3-11.1)
[2020-04-01 05:41] LABS: D-Dimer 960 ng/mLFEU (0-500)
[2020-04-01 05:42] LABS: Fibrinogen 716 mg/dL (169-393)
[2020-04-01 05:45] LABS: Albumin 3.2 g/dL (3.5-5.7); Bilirubin,Total 1.4 mg/dL (0.3-1.0); C-Reactive Protein 195 mg/L (Less than 10); Calcium 8.8 mg/dL (8.6-10.3); Globulin 3.1 g/dL (2.4-3.5); Lactate Dehydrogenase 299 Units/L (140-271); Magnesium 1.8 mg/dL (1.6-2.6); Potassium 5.3 mEq/L (3.5-5.1); Total Protein 6.3 g/dL (6.4-8.9)
[2020-04-01] MEDS ORDERED: *HR* LORazepam 2 MG/ML VIAL IVP ONE (05:47)
[2020-04-01 06:03] LABS: Ferritin 442 ng/mL (20-250)
[2020-04-01 07:57] LABS: Activated Partial Thrombo Time 32.3 Seconds (26.0-36.0)
[2020-04-01 08:00] LABS: INR 2.2; Prothrombin Time 25.4 Seconds (9.4-12.1)
[2020-04-01] MEDS ORDERED: Haloperidol Lactate 5 MG/ML VIAL IVP PRN (10:33)
[2020-04-01] MEDS: *HR* LORazepam 2 MG/ML VIAL IVP PRN (14:01)
[2020-04-01] MEDS ORDERED: *HR* Warfarin 5 MG TABLET PO ONE (18:00)
[2020-04-01] MEDS ORDERED: Warfarin perPT PO PRN (18:00)
[2020-04-01] MEDS ORDERED: *HR* Warfarin 2.5 MG TABLET PO ONE (18:15)
[2020-04-01] MEDS: Ipratropium 1 PUFF INHALER IH SCH ×2 (19:45→23:01)
[2020-04-02] MEDS: *HR* Metoprolol 5 MG/5 ML VIAL IVP PRN (04:17)
[2020-04-02] MEDS: Ipratropium 1 PUFF INHALER IH SCH ×6 (04:26→23:46)
[2020-04-02 05:47] LABS: Basophils % 0.2 %; Hematocrit 38.6 % (37.5-50.1); Hemoglobin 12.2 g/dL (12.9-16.9); Immature Granulocytes % 1.1 % (0-4); Lymphocytes # 0.7 K/mcL (0.6-4.6); Lymphocytes % 4.2 %; Mean Corpuscular HGB Conc 31.6 g/dL (31.6-35.5); Mean Corpuscular Hemoglobin 27.5 pg (28.0-33.3); Mean Corpuscular Volume 87.1 fL (83.0-100.0); Mean Platelet Volume 11.2 fL (9.4-12.4); Monocytes # 0.3 K/mcL (0.0-1.3); Monocytes % 2.1 %; Platelet Count 171 K/mcL (140-400); Red Blood Count 4.43 M/mcL (4.19-5.50); Red Cell Distribution Width 15.7 % (11.5-14.5); Segmented Neutrophils % 92.4 %; White Blood Count 16.2 K/mcL (4.3-11.1)
[2020-04-02 05:55] LABS: INR 2.8; Prothrombin Time 31.8 Seconds (9.4-12.1)
[2020-04-02 06:11] LABS: Albumin 3.3 g/dL (3.5-5.7); Albumin/Globulin Ratio 1.1 (1.1-2.2); Bilirubin,Total 0.9 mg/dL (0.3-1.0); Globulin 3.1 g/dL (2.4-3.5); Potassium 5.3 mEq/L (3.5-5.1); Total Protein 6.4 g/dL (6.4-8.9)
[2020-04-02] MEDS ORDERED: *HR* Metoprolol 5 MG/5 ML VIAL IVP ONE (09:17)
[2020-04-02] MEDS: Dexamethasone 4 MG/ML VIAL IVP SCH (09:23)
[2020-04-02] MEDS: Insulin LISPRO 300 UNITS/3 ML VIAL SQ SCH ×4 (09:47→19:52)
[2020-04-02] MEDS: *HR* LORazepam 2 MG/ML VIAL IVP PRN (17:48)
[2020-04-02] MEDS: DilTIAZem CD (24hr) 120 MG CAP.ER.24H PO SCH (19:41)
[2020-04-02] MEDS ORDERED: Latanoprost 2.5 ML BOTTLE BOTH EYES SCH (21:00)
[2020-04-03] MEDS: Ipratropium 1 PUFF INHALER IH SCH ×2 (03:42→07:44)
[2020-04-03 05:02] LABS: Basophils # 0.1 K/mcL (0.0-0.2); Basophils % 0.4 %; Hematocrit 36.2 % (37.5-50.1); Hemoglobin 11.3 g/dL (12.9-16.9); Immature Granulocytes % 1.4 % (0-4); Lymphocytes # 0.5 K/mcL (0.6-4.6); Lymphocytes % 3.2 %; Mean Corpuscular HGB Conc 31.2 g/dL (31.6-35.5); Mean Corpuscular Hemoglobin 26.3 pg (28.0-33.3); Mean Corpuscular Volume 84.4 fL (83.0-100.0); Mean Platelet Volume 11.1 fL (9.4-12.4); Monocytes # 0.3 K/mcL (0.0-1.3); Monocytes % 2.1 %; Neutrophils # 13.1 K/mcL (1.6-8.9); Nucleated Red Blood Cells 0.3 /100 WBC (0); Platelet Count 173 K/mcL (140-400); Red Blood Count 4.29 M/mcL (4.19-5.50); Red Cell Distribution Width 15.5 % (11.5-14.5); Segmented Neutrophils % 92.9 %; White Blood Count 14.1 K/mcL (4.3-11.1)
[2020-04-03 05:22] LABS: Albumin/Globulin Ratio 0.9 (1.1-2.2); Bilirubin,Total 1.1 mg/dL (0.3-1.0); Calcium 8.7 mg/dL (8.6-10.3); Globulin 3.2 g/dL (2.4-3.5); Potassium 5.4 mEq/L (3.5-5.1); Total Protein 6.2 g/dL (6.4-8.9)
[2020-04-03 06:54] LABS: Prothrombin Time 53.7 Seconds (9.4-12.1)
[2020-04-03 06:55] LABS: INR 4.9
[2020-04-03] MEDS: DilTIAZem CD (24hr) 120 MG CAP.ER.24H PO SCH (08:21)
[2020-04-03] MEDS: Dexamethasone 4 MG/ML VIAL IVP SCH (08:21)
[2020-04-03] MEDS: Insulin LISPRO 300 UNITS/3 ML VIAL SQ SCH (08:22)
[2020-04-03] MEDS ORDERED: Finasteride 5 MG TABLET PO SCH (09:00)
[2020-04-03] MEDS ORDERED: *HR* FentaNYL (PF) 100 MCG/2 ML VIAL IVP PRN (10:50)
[2020-04-03] MEDS: *HR* LORazepam 2 MG/ML VIAL IVP PRN ×6 (12:00→21:07)
[2020-04-03] MEDS: *HR* FentaNYL (PF) 100 MCG/2 ML VIAL IVP PRN ×5 (12:43→18:10)
[2020-04-03] MEDS: Atropine Sulfate 1% 40 DROP/2 ML BOTTLE SL PRN ×2 (15:29→21:07)
[2020-04-03] MEDS ORDERED: *HR* Warfarin 4 MG TABLET PO ONE (18:00)
[2020-04-03] MEDS ORDERED: *HR* FentaNYL (PF) 100 MCG/2 ML VIAL IVP ONE (18:24)
[2020-04-03] MEDS ORDERED: FentaNYL (PF) 1,000 MCG/100 ML IV.SOLN IVC SCH (18:30)
[2020-04-03 20:05] VITALS: BP 116/79
[2020-04-06 19:39] LABS: CK-BB (CK isoenzymes) 0 % (0-0); CK-MB (CK isoenzymes) 0 % (0-4); CK-MM (CK-isoenzymes) 100 % (96-100)
[2020-04-07 11:24] LABS: CK Total (Ck Isoenzymes) 497 U/L (20-200)
== END 2020-04-04 03:50 | disposition expired | DRG 177 ==
LOC: CDU → SUATTDRO 04-01 01:15
PROVIDERS: ADMIT Student in an Organized Health Care Education/Training Program; ATTEND Family Medicine